=== PATIENT | male | born 1950 | race American Indian/Alaskan Native ===

== ENCOUNTER 2016-05-04 09:52 | Emergency (ER) | payer SELFPAY ==
[2016-05-04 10:39] VITALS: BP 114/75
--- NOTE | 2016-05-04 10:45 | Emergency Department Report ---
Chief Complaint: Abdominal Pain Stated Complaint: LFT SIDE PAIN Time Seen by Provider: 05/04/16 10:40 - HPI History of Present Illness: 66-year-old male with history of hypertension and enlarged prostate, presents today with left scrotal pain radiating to his left lower abdomen 6 days. Positive for painful urination. Denies fever, chills, nausea, vomiting, penile discharge. - ROS Review of Systems: Per HPI - Exam Vital Signs: Vital Signs 05/04/16 10:36 Temperature 97.6 F Pulse Rate 88 Respiratory 16 Rate Blood Pressure 114/75 O2 Sat by Pulse 98 Oximetry Physical Exam: General: 66-year-old male in no acute distress. Well-developed, well-nourished. CV: Regular rate and rhythm. Lungs: Clear to auscultation bilaterally. Abdomen: Positive for tenderness to palpation of left lower quadrant. No guarding or rebound tenderness. Negative for CVA tenderness bilaterally. MSE screening note: Focused history and physical exam performed. Due to findings the following was ordered: ED Disposition for MSE Condition: Stable
[2016-05-04 11:17] LABS: Basophils % (Auto) 0.5 % (0.0-1.8); Eosinophils % (Auto) 0.1 % (0.0-4.3); Hematocrit 46.1 % (35.5-45.6); Hemoglobin 15.6 gm/dl (11.8-15.2); Mean Corpuscular HGB Conc 34 % (32-34); Mean Corpuscular Hemoglobin 31 pg (28-32); Mean Corpuscular Volume 92 fl (84-94); Platelet Count 459 K/mm3 (140-440); Red Blood Count 5.01 M/mm3 (3.65-5.03); Red Cell Distribution Width 13.8 % (13.2-15.2); White Blood Count 18.6 K/mm3 (4.5-11.0)
[2016-05-04 11:24] LABS: Anion Gap 17 mmol/L; BUN/Creatinine Ratio 14.44; Blood Urea Nitrogen 13 mg/dL (9-20); Calcium 9.5 mg/dL (8.4-10.2); Carbon Dioxide 26 mmol/L (22-30); Chloride 96.1 mmol/L (98-107); Glucose 113 mg/dL (75-100); Lipase 29 units/L (13-60); Potassium 4.1 mmol/L (3.6-5.0); Sodium 135 mmol/L (137-145)
--- NOTE | 2016-05-04 12:10 | Ultrasound Report ---
ULTRASOUND SCROTAL INDICATION: Left scrotal pain. COMPARISON: None similar at this institution. FINDINGS: Longitudinal and transverse grayscale and color flow sonographic evaluation of the scrotum and its contents demonstrates normal testicular contour, though somewhat heterogeneous without suspicious intrinsic lesions. Preserved bilateral blood flow. Right testicle estimated at 3.6 x 2.9 x 3.1 cm while the left testicle is 4.3 x 2.3 x 2.3 cm. Moderate to large bilateral hydroceles, fairly anechoic on the left, though slightly complex with some low level echoes on the right. Normal right epididymis measuring 0.6 cm, image 28. Left epididymal head though prominent and slightly heterogeneous, approximately 1.2 x 0.8 x 0.9 cm on image 51 with mild increased blood flow. CONCLUSION: Moderate to large bilateral hydroceles and left epididymitis sonographically without evidence of testicular torsion, as described. Please correlate. Thank you for the opportunity to participate in this patient's care.
--- NOTE | 2016-05-06 21:09 | ED Elopement Review ---
ED Pt Elopement review - Results review Lab results: Laboratory Tests 05/04/16 05/04/16 05/04/16 10:54 10:54 10:54 WBC 18.6 H RBC 5.01 Hgb 15.6 H Hct 46.1 H MCV 92 MCH 31 MCHC 34 RDW 13.8 Plt Count 459 H Lymph % (Auto) 10.3 L [place] % (Auto) 6.5 Eos % (Auto) 0.1 Baso % (Auto) 0.5 Lymph # 1.9 [place] # 1.2 H Eos # 0.0 Baso # 0.1 Seg Neutrophils % 82.6 H Seg Neutrophils # 15.4 H Sodium 135 L Potassium 4.1 Chloride 96.1 L Carbon Dioxide 26 Anion Gap 17 BUN 13 Creatinine 0.9 Estimated GFR > 60 BUN/Creatinine Ratio 14.44 Glucose 113 H Calcium 9.5 Amylase 42 Lipase 29 - Call Back decision Pt Call Back Decision: Call pt to return to ED [facility] (elevated WBC with abdominal pain. Requires urinalysis and possible CT scan)
== END 2016-05-04 16:08 | disposition left against medical advice (07) ==
LOC: ED 09:52
DX: N50.82 Scrotal pain (principal); I10 Essential (primary) hypertension; Z53.21 Procedure and treatment not carried out due to patient leaving prior to being seen by health care provider
CPT/HCPCS: 36415; 80048; 82150; 83690; 85025; 93975